=== PATIENT | male | born 1995 | race Caucasian/White ===

== ENCOUNTER 2018-11-01 13:50 | Inpatient (IN) | payer OTHER ==
[~2018-11-01] VITALS: Ht 182.9 cm; Wt 171.0 kg
[2018-11-01] MEDS ORDERED: LOSA50 PO (14:03)
[2018-11-01 14:46] LABS: BASOPHILS ABSOLUTE AUTO 0.03 K/mm3 (0.00-0.23); BASOPHILS PERCENT AUTO 0 % (0-2); EOSINOPHILS ABSOLUTE AUTO 0.12 K/mm3 (0.00-0.68); EOSINOPHILS PERCENT AUTO 2 % (0-6); Hematocrit 51.1 % (37.0-53.0); Hemoglobin 17.7 g/dL (13.5-17.5); IMMATURE GRAN ABSOLUTE AUTO 0.02 K/mm3 (0.00-0.10); IMMATURE GRAN PERCENT AUTO 0 % (0-1); LYMPHOCYTES ABSOLUTE AUTO 1.97 K/mm3 (0.84-5.20); LYMPHOCYTES PERCENT AUTO 24 % (21-46); MONOCYTES ABSOLUTE AUTO 0.89 K/mm3 (0.16-1.47); MONOCYTES PERCENT AUTO 11 % (4-13); Mean Corpuscular HGB 29.4 pg (26.0-34.0); Mean Corpuscular HGB Conc 34.6 g/dL (31.5-36.5); Mean Corpuscular Volume 85 fL (80-100); Mean Platelet Volume 12.1 fL (9.1-12.4); NEUTROPHILS ABSOLUTE AUTO 5.15 K/mm3 (1.96-9.15); NEUTROPHILS PERCENT AUTO 63 % (41-73); Platelet Count 218 K/mm3 (150-400); RDW Coefficient Variation 12.8 % (11.7-14.2); RDW Standard Deviation 39.5 fL (35.1-46.3); Red Blood Cell Count 6.02 M/mm3 (4.30-5.90); White Blood Cell Count 8.18 K/mm3 (4.00-11.30)
[2018-11-01 15:15] LABS: Alanine Aminotransfer (ALT/SGP 82 U/L (12-78); Albumin, Blood 4.2 g/dL (3.4-5.0); Albumin/Globulin Ratio 1.2 (0.8-1.8); Alk Phos 94 U/L (50-136); Anion Gap 7 mmol/L (6-16); Aspartate Aminotrans (AST/SGOT 51 U/L (12-37); Bilirubin, Total 0.5 mg/dL (0.1-1.0); Blood Urea Nitrogen 14 mg/dL (8-24); Bun/Creatinine Ratio 16.7 (12.0-20.0); CO2, Blood 26 mmol/L (21-32); Calcium, Blood 8.4 mg/dL (8.5-10.1); Chloride, Blood 107 mmol/L (98-108); Creatinine, Blood 0.84 mg/dL (0.60-1.20); Globulin, Blood 3.6 g/dL (2.2-4.0); Glomerular Filtration Rate >60 (60-); Glucose, Blood 86 mg/dL (70-99); Potassium, Blood 3.6 mmol/L (3.5-5.5); Sodium, Blood 140 mmol/L (136-145); Total Protein, Blood 7.8 g/dL (6.4-8.2)
[2018-11-01] MEDS ORDERED: Cyclobenzaprine5 MG PO (15:32)
[2018-11-01] MEDS ORDERED: ALBU90OI61 INH (15:32)
[2018-11-01] MEDS ORDERED: Lomotil Tablet1 EACH PO (15:33)
[2018-11-01 17:32] LABS: CHOL/HDL RATIO 5.1; Cholesterol 198 mg/dL (50-200); HDL Cholesterol 39 mg/dL (>39); LDL/HDL RATIO 3.2; Low Density Lipoprotein Chol 124 mg/dL (0-110); Triglycerides 173 mg/dL (30-140); Very Low Density Lipoprot Chol 34 mg/dL (6-28)
--- NOTE | 2018-11-01 19:35 | NUR ---
PT HERE VIA [facility] FROM ER. PT AMBULATORY TO PCU BED. NITRO TO CHEST WALL. PT DENIES ANY CHEST PAIN, SOB, JAW, OR SHOULDER PAIN. PT DENIES NAUSEA, FEELING DIZZY OR LIGHTHEADED. PT DOES REPORT A HEADACHE, ALSO REPORTS A HISTORY OF CHRONIC HEADACHES, HOWEVER REPORTS HE DID NOT HAVE A HEADACHE PRIOR TO NITRO ADMINISTRATION TODAY. ORIENTED TO ROOM, CALL LIGHT, CARE ROUNDING. SO WITH PT, SUPPORTIVE. EDUCATED ON DIET CHANGES, PT IS MORBIDLY OBESE, AND PER REPORT ATE 2 BIG MACKS, A LARGE KINCAID, PIE, AND SODA POP FROM [employer] IN ER, PRIOR TO COMING TO PCU. PT ALSO UNDERSTANDS HE IS NPO AT THIS TIME, FOR AM PROCEDURE. CALL LIGHT WITHIN REACH. SO SPENDING THE NIGHT - RECLINER PROVIDED. BED IN LOW POSITION. ORAL SWABS AT BEDSIDE.
--- NOTE | 2018-11-01 22:22 | NUR ---
NITRO REMOVED FROM CHEST WALL - PT DENIES ANY CHEST PAIN, BUT IS COMPLAINING OF A MIGRAINE HEADACHE. ICE PACK PROVIDED FOR COMFORT, MEDICATED WITH TYLENOL - WILL CONTINUE TO MONITOR.
--- NOTE | 2018-11-02 05:37 | NUR ---
SHIFT SUMMARY - NO ACUTE CHANGES SINCE ADMIT LAST NOC. PT REPORTS HIS HEADACHE PAIN 2/10 THIS AM - WHICH HE REPORTS TOLERABLE. PT HAS DENIED ANY CHEST PAIN OR DISCOMFORT THROUGHOUT THE NIGHT. PT HAS BEEN NPO FOR AM PROCEDURE. CLEAR VILLA COLORED URINE OUT THIS AM. CALL LIGHT WITHIN REACH. BED IN LOW POSITION.
--- NOTE | 2018-11-02 12:28 | NUR ---
Echocardiogram using 0.60ml; of Definity contrast performed.
--- NOTE | 2018-11-02 18:23 | NUR ---
END OF SHIFT; PT NOW MED WITH TELE STATUS. CAME TO SEE HIM TODAY AND DISCUSSED RESULTS OF ECHO AND NEED FOR PATIENT TO HAVE DIET MANAGMENT AND EXERCISE REGIMEN TO BEGIN IMMEDIATELY. PT AND SPOUSE VERBALIZED UNDERSTANDING. PT HAD FIRST PART OF STRESS TEST TODAY AND RESTING PORTION WILL BE TOMORROW SINCE PATIENT HAD NITRO LAST NOC AND NEED FOR 24 HOURS WITHOUT NITRO PRIOR TO TEST. PT HAS PLEASANT AFFECT IS COOPERATIVE WITH CARE. HIS VITAL SIGNS SHOW ELEVATED BLOOD PRESSURE AND MD IS ADJUSTING HIS MEDS TO COMPENSATE FOR SAME. WILL CONTINUE TO MONITOR THIS PAITENT CLOSELY UNTIL REPORT AND HAND OFF TO NOC SHIFT RN.
--- NOTE | 2018-11-03 06:15 | NUR ---
SHIFT SUMMARY. DENIES ANY CHEST PAIN ALL SHIFT. MILD TAFOYA PER HX IT NEVER REDUCES TO <2. AND TYLENOL GIVEN TO ASSIST IN THIS;/ VISITORS ON A LONG WALK IN [place] W/ PT. AND TOLERATED VERY WELL. BP REDUCING W/ MEDS AND CALMING EFFORTS. SR 90'S NPO OF FOOD SINCE MID NOC.AWARE HE CAN HAVE H2O W/ MEDS . SLEEP STUDY ON RA FOR ABOUT 6 HR. SNORING AND SLEEPING VERY WELL. DID NOT NOTICE PERIODS OF APNEA ON ROUNDING. BP WNL THIS AM WHEN JUST WAKING UP;.NO REQ FOR TYLENOL. FOR 2/10 TAFOYA AND NEVER CP TONIGHT. NO SOB W/ ANY ACTIVITY
--- NOTE | 2018-11-03 14:42 | NUR ---
PT NPO PRIOR TO STRESS TEST. STRESS TEST COMPLETE. PT CLEARED BY NUC MED TO EAT.
[2018-11-03] MEDS ORDERED: AMLO5 PO (17:48)
[2018-11-03] MEDS ORDERED: ASPI81CH PO (17:49)
[2018-11-03] MEDS ORDERED: ATOR40TA PO (17:50)
[2018-11-03] MEDS ORDERED: LISI20 PO (17:50)
[2018-11-03] MEDS ORDERED: Lopressor 25 mg25 MG PO (17:51)
[2018-11-03] MEDS ORDERED: NITR.4SL SL (17:52)
--- NOTE | 2018-11-03 18:17 | NUR ---
SHIFT SUMMARY PT A&O X4. INDEPENDENT IN ROOM. FAMILY AT BEDSIDE. MEDICATIONS CALLED TO [facility] IN [place]. DISCHARGE INSTRUCTIONS AND MEDICATIONS REVIEWED W/ PT. IV DC'D. PT ESCORTED OUT IN WHEELCHAIR W/ FAMILY & BELONGINGS @ APPROX 1819.
== END 2018-11-03 18:10 | disposition home or self-care (01) | DRG 305 ==
LOC: ER 13:50 → PCU 13:51 → ER 13:51 → PCU 13:51
PROVIDERS: Physician Assistant; ADMIT Internal Medicine
DX: I16.0 Hypertensive urgency (principal); I24.9 Acute ischemic heart disease, unspecified; Z68.43 Body mass index [BMI] 50.0-59.9, adult; R07.89 Other chest pain; E66.01 Morbid (severe) obesity due to excess calories; E78.5 Hyperlipidemia, unspecified; G47.33 Obstructive sleep apnea (adult) (pediatric); I77.810 Thoracic aortic ectasia; I11.9 Hypertensive heart disease without heart failure
CPT/HCPCS: 36415; 71046; 78452; 80053; 80061; 84443; 84484; 85025; 85379; 93005; 93010; 93017; 94762; 96372; 96374; 99285-25; A9500; C8929; G0378; J0706; J1650; J2785; Q9957

== ENCOUNTER 2022-01-16 06:43 | Day surgery (SDC) | payer OTHER ==
[~2022-01-16] VITALS: Ht 182.9 cm; Wt 384.4 kg
[~2022-01-16 06:43] MED LIST: ALBU90OI61 INH; AMLO5 PO; ASPI81CH PO; ATOR40TA PO; Cyclobenzaprine5 MG PO; LISI20 PO; LOSA50 PO; Lomotil Tablet1 EACH PO; Lopressor 25 mg25 MG PO; NITR.4SL SL
== END 2022-01-16 08:39 | disposition home or self-care (01) ==
LOC: ORSCSDS 06:43
PROVIDERS: Orthopaedic Surgery
PROC: 01N50ZZ Release Median Nerve, Open Approach (ICD-10-PCS; principal; 2022-01-16 08:00)
DX: G56.03 Carpal tunnel syndrome, bilateral upper limbs (principal); I10 Essential (primary) hypertension; J45.909 Unspecified asthma, uncomplicated; G47.33 Obstructive sleep apnea (adult) (pediatric); E66.01 Morbid (severe) obesity due to excess calories; Z68.43 Body mass index [BMI] 50.0-59.9, adult; Z79.899 Other long term (current) drug therapy
CPT/HCPCS: J0690; J2250

== ENCOUNTER 2022-02-20 07:31 | Day surgery (SDC) | payer OTHER ==
[~2022-02-20] VITALS: Ht 182.9 cm; Wt 173.4 kg
[2022-02-20] MEDS ORDERED: METO50ER PO (08:09)
[2022-02-20] MEDS ORDERED: IBUP600 PO (08:12)
--- NOTE | 2022-02-20 09:44 | NUR ---
02/20/22 0944 TK MADRIGAL REPORTED ELEVATED BP TO DR MILLER AND ADVISED THE PATIENT TO FOLLOW UP WITH HIS PCP FOR HTN
== END 2022-02-20 09:58 | disposition home or self-care (01) ==
LOC: ORSCSDS 07:31
PROVIDERS: Orthopaedic Surgery
PROC: 01N50ZZ Release Median Nerve, Open Approach (ICD-10-PCS; principal; 2022-02-20 09:00)
DX: G56.01 Carpal tunnel syndrome, right upper limb (principal); I10 Essential (primary) hypertension; G47.33 Obstructive sleep apnea (adult) (pediatric); E66.01 Morbid (severe) obesity due to excess calories; Z68.43 Body mass index [BMI] 50.0-59.9, adult; Z79.899 Other long term (current) drug therapy
CPT/HCPCS: J0690; J2250; J3010

== ENCOUNTER 2023-10-03 00:21 | Observation (INO) | payer OTHER ==
[~2023-10-03] VITALS: Ht 180.3 cm; Wt 176.5 kg
[~2023-10-03 00:21] MED LIST changes: +IBUP600 PO; +METO50ER PO
[2023-10-03 00:51] LABS: BASOPHILS ABSOLUTE AUTO 0.07 K/mm3 (0.00-0.23); BASOPHILS PERCENT AUTO 0 % (0-2); EOSINOPHILS ABSOLUTE AUTO 0.09 K/mm3 (0.00-0.68); EOSINOPHILS PERCENT AUTO 0 % (0-6); Hematocrit 45.2 % (37.0-53.0); IMMATURE GRAN ABSOLUTE AUTO 0.09 K/mm3 (0.00-0.10); IMMATURE GRAN PERCENT AUTO 0 % (0-1); LYMPHOCYTES ABSOLUTE AUTO 1.54 K/mm3 (0.84-5.20); LYMPHOCYTES PERCENT AUTO 8 % (21-46); MONOCYTES ABSOLUTE AUTO 1.15 K/mm3 (0.16-1.47); MONOCYTES PERCENT AUTO 6 % (4-13); Mean Corpuscular HGB 30.4 pg (26.0-34.0); Mean Corpuscular HGB Conc 35.4 g/dL (31.5-36.5); Mean Corpuscular Volume 86 fL (80-100); Mean Platelet Volume 12.1 fL (9.1-12.4); NEUTROPHILS ABSOLUTE AUTO 17.35 K/mm3 (1.96-9.15); NEUTROPHILS PERCENT AUTO 86 % (41-73); Platelet Count 169 K/mm3 (150-400); RDW Coefficient Variation 13.1 % (11.7-14.2); RDW Standard Deviation 40.3 fL (35.1-46.3); Red Blood Cell Count 5.26 M/mm3 (4.30-5.90); White Blood Cell Count 20.29 K/mm3 (4.00-11.30)
[2023-10-03 01:15] LABS: Albumin/Globulin Ratio 1.1 (0.8-1.8); Bilirubin, Total 0.5 mg/dL (0.1-1.0); Calcium, Blood 9.1 mg/dL (8.5-10.1); Creatinine, Blood 0.68 mg/dL (0.60-1.20); Globulin, Blood 3.5 g/dL (2.2-4.0); Potassium, Blood 3.9 mmol/L (3.5-5.5); Total Protein, Blood 7.5 g/dL (6.4-8.2)
[2023-10-03 02:48] LABS: Anti-Xa UFH, PHA Monitoring <0.10 IU/mL; International Normalized Ratio 1.04; Prothrombin Time Results 10.9 Sec (9.7-11.5)
[2023-10-03 05:27] LABS: BASOPHILS ABSOLUTE AUTO 0.04 K/mm3 (0.00-0.23); BASOPHILS PERCENT AUTO 0 % (0-2); EOSINOPHILS ABSOLUTE AUTO 0.04 K/mm3 (0.00-0.68); EOSINOPHILS PERCENT AUTO 0 % (0-6); Hematocrit 40.7 % (37.0-53.0); Hemoglobin 14.4 g/dL (13.5-17.5); IMMATURE GRAN ABSOLUTE AUTO 0.07 K/mm3 (0.00-0.10); IMMATURE GRAN PERCENT AUTO 0 % (0-1); LYMPHOCYTES ABSOLUTE AUTO 1.35 K/mm3 (0.84-5.20); LYMPHOCYTES PERCENT AUTO 8 % (21-46); MONOCYTES ABSOLUTE AUTO 0.96 K/mm3 (0.16-1.47); MONOCYTES PERCENT AUTO 6 % (4-13); Mean Corpuscular HGB 30.4 pg (26.0-34.0); Mean Corpuscular HGB Conc 35.4 g/dL (31.5-36.5); Mean Corpuscular Volume 86 fL (80-100); Mean Platelet Volume 12.1 fL (9.1-12.4); NEUTROPHILS ABSOLUTE AUTO 14.66 K/mm3 (1.96-9.15); NEUTROPHILS PERCENT AUTO 86 % (41-73); Platelet Count 157 K/mm3 (150-400); RDW Coefficient Variation 12.9 % (11.7-14.2); RDW Standard Deviation 40.2 fL (35.1-46.3); Red Blood Cell Count 4.73 M/mm3 (4.30-5.90); White Blood Cell Count 17.12 K/mm3 (4.00-11.30)
[2023-10-03 05:36] LABS: Albumin, Blood 3.6 g/dL (3.4-5.0); Albumin/Globulin Ratio 1.2 (0.8-1.8); Bilirubin, Total 0.7 mg/dL (0.1-1.0); Bun/Creatinine Ratio 19.1 (12.0-20.0); Calcium, Blood 8.6 mg/dL (8.5-10.1); Creatinine, Blood 0.68 mg/dL (0.60-1.20); Potassium, Blood 4.2 mmol/L (3.5-5.5); Total Protein, Blood 6.6 g/dL (6.4-8.2)
[2023-10-03 05:50] VITALS: BP 117/82
--- NOTE | 2023-10-03 06:29 | NUR ---
ADMIT NOTE HANDOFF RECEIVED FROM [employer] CHIEF ROSA MARIA. PT ARRIVED TO FLOOR VIA [facility]. PT ORIENTED TO UNIT. CALL BUTTON WITHIN REACH.
[2023-10-03 10:19] LABS: BASOPHILS ABSOLUTE AUTO 0.04 K/mm3 (0.00-0.23); BASOPHILS PERCENT AUTO 0 % (0-2); EOSINOPHILS ABSOLUTE AUTO 0.02 K/mm3 (0.00-0.68); EOSINOPHILS PERCENT AUTO 0 % (0-6); Hematocrit 42.4 % (37.0-53.0); Hemoglobin 15.1 g/dL (13.5-17.5); IMMATURE GRAN ABSOLUTE AUTO 0.04 K/mm3 (0.00-0.10); IMMATURE GRAN PERCENT AUTO 0 % (0-1); LYMPHOCYTES ABSOLUTE AUTO 1.42 K/mm3 (0.84-5.20); LYMPHOCYTES PERCENT AUTO 10 % (21-46); MONOCYTES ABSOLUTE AUTO 0.85 K/mm3 (0.16-1.47); MONOCYTES PERCENT AUTO 6 % (4-13); Mean Corpuscular HGB 30.9 pg (26.0-34.0); Mean Corpuscular HGB Conc 35.6 g/dL (31.5-36.5); Mean Corpuscular Volume 87 fL (80-100); Mean Platelet Volume 11.6 fL (9.1-12.4); NEUTROPHILS ABSOLUTE AUTO 11.97 K/mm3 (1.96-9.15); NEUTROPHILS PERCENT AUTO 84 % (41-73); Platelet Count 160 K/mm3 (150-400); RDW Coefficient Variation 13.1 % (11.7-14.2); RDW Standard Deviation 40.5 fL (35.1-46.3); Red Blood Cell Count 4.88 M/mm3 (4.30-5.90); White Blood Cell Count 14.34 K/mm3 (4.00-11.30)
[2023-10-03] MEDS ORDERED: ALBU90OI INH (11:17)
[2023-10-03] MEDS ORDERED: METF500 PO (11:18)
--- NOTE | 2023-10-03 11:52 | NUR ---
DISCHARGE SUMMARY: PT DISCHARGED HOME. PT IN NO RESPIRATORY DISTRESS AT THIS TIME. PT EDUCATED ON DISCHARGE PLAN AND MEDICATIONS. PT VU. PT DECLINED WHEELCHAIR ESCORT. PT STEADY ON FEET AND DISCHARGED WITH ESCORT TO POV.
[2023-10-06 11:22] LABS: HEMOGLOBIN A1C 7.5 % (4.8-5.6)
== END 2023-10-03 11:33 | disposition home or self-care (01) ==
LOC: ER 00:21 → MEDS 00:22
PROVIDERS: Emergency Medicine; Family Medicine; Internal Medicine; ADMIT Student in an Organized Health Care Education/Training Program
DX: J96.01 Acute respiratory failure with hypoxia (principal); J45.901 Unspecified asthma with (acute) exacerbation; R79.89 Other specified abnormal findings of blood chemistry; I10 Essential (primary) hypertension; E66.01 Morbid (severe) obesity due to excess calories; Z68.44 Body mass index [BMI] 60.0-69.9, adult; Z88.5 Allergy status to narcotic agent; Z79.899 Other long term (current) drug therapy
CPT/HCPCS: 36415; 71046; 80053; 82947; 83036; 84484; 85025; 85379; 85520; 85610; 85730; 93005; 93010; 94640; 94664; 96361; 96365; 96375; 99285-25; A9270; G0378; J1200; J1644; J2405; J7030

== ENCOUNTER 2023-10-04 14:49 | Inpatient (IN) | payer OTHER ==
[~2023-10-04] VITALS: Ht 182.9 cm; Wt 169.2 kg
[~2023-10-04 14:49] MED LIST changes: +ALBU90OI INH; +METF500 PO
[2023-10-04 15:23] LABS: BASOPHILS ABSOLUTE AUTO 0.05 K/mm3 (0.00-0.23); BASOPHILS PERCENT AUTO 0 % (0-2); EOSINOPHILS ABSOLUTE AUTO 0.02 K/mm3 (0.00-0.68); EOSINOPHILS PERCENT AUTO 0 % (0-6); Hematocrit 46.4 % (37.0-53.0); Hemoglobin 16.4 g/dL (13.5-17.5); IMMATURE GRAN ABSOLUTE AUTO 0.03 K/mm3 (0.00-0.10); IMMATURE GRAN PERCENT AUTO 0 % (0-1); LYMPHOCYTES ABSOLUTE AUTO 0.52 K/mm3 (0.84-5.20); LYMPHOCYTES PERCENT AUTO 5 % (21-46); MONOCYTES ABSOLUTE AUTO 0.64 K/mm3 (0.16-1.47); MONOCYTES PERCENT AUTO 6 % (4-13); Mean Corpuscular HGB 30.3 pg (26.0-34.0); Mean Corpuscular HGB Conc 35.3 g/dL (31.5-36.5); Mean Corpuscular Volume 86 fL (80-100); Mean Platelet Volume 11.9 fL (9.1-12.4); NEUTROPHILS ABSOLUTE AUTO 10.05 K/mm3 (1.96-9.15); NEUTROPHILS PERCENT AUTO 89 % (41-73); Platelet Count 175 K/mm3 (150-400); RDW Coefficient Variation 13.1 % (11.7-14.2); RDW Standard Deviation 40.4 fL (35.1-46.3); Red Blood Cell Count 5.41 M/mm3 (4.30-5.90); White Blood Cell Count 11.31 K/mm3 (4.00-11.30)
[2023-10-04 15:50] LABS: Bilirubin, Total 1.2 mg/dL (0.1-1.0); Bun/Creatinine Ratio 19.7 (12.0-20.0); Calcium, Blood 9.3 mg/dL (8.5-10.1); Creatinine, Blood 0.71 mg/dL (0.60-1.20); Globulin, Blood 4.1 g/dL (2.2-4.0); Total Protein, Blood 8.1 g/dL (6.4-8.2)
[2023-10-04 17:29] LABS: Influenza A, PCR NEGATIVE (NEGATIVE); Influenza B, PCR NEGATIVE (NEGATIVE); Resp Syncytial Virus, PCR NEGATIVE (NEGATIVE); SARS-Cov-2 (COVID-19) PCR, MMC NEGATIVE (NEGATIVE)
[2023-10-04 23:48] VITALS: BP 141/86
[2023-10-05 03:17] VITALS: BP 126/75
[2023-10-05 05:19] LABS: BASOPHILS ABSOLUTE AUTO 0.03 K/mm3 (0.00-0.23); BASOPHILS PERCENT AUTO 0 % (0-2); EOSINOPHILS ABSOLUTE AUTO 0.03 K/mm3 (0.00-0.68); EOSINOPHILS PERCENT AUTO 0 % (0-6); Hematocrit 40.9 % (37.0-53.0); Hemoglobin 14.5 g/dL (13.5-17.5); IMMATURE GRAN ABSOLUTE AUTO 0.03 K/mm3 (0.00-0.10); IMMATURE GRAN PERCENT AUTO 0 % (0-1); LYMPHOCYTES ABSOLUTE AUTO 0.87 K/mm3 (0.84-5.20); LYMPHOCYTES PERCENT AUTO 12 % (21-46); MONOCYTES ABSOLUTE AUTO 0.71 K/mm3 (0.16-1.47); MONOCYTES PERCENT AUTO 10 % (4-13); Mean Corpuscular HGB 30.7 pg (26.0-34.0); Mean Corpuscular HGB Conc 35.5 g/dL (31.5-36.5); Mean Corpuscular Volume 87 fL (80-100); Mean Platelet Volume 11.6 fL (9.1-12.4); NEUTROPHILS ABSOLUTE AUTO 5.57 K/mm3 (1.96-9.15); NEUTROPHILS PERCENT AUTO 77 % (41-73); Platelet Count 159 K/mm3 (150-400); RDW Coefficient Variation 13.1 % (11.7-14.2); RDW Standard Deviation 40.9 fL (35.1-46.3); Red Blood Cell Count 4.72 M/mm3 (4.30-5.90); White Blood Cell Count 7.24 K/mm3 (4.00-11.30)
--- NOTE | 2023-10-05 05:25 | NUR ---
SHIFT SUMMARY PATIENT IS ALERT AND ORIENTED. PATIENT HAS HAD NO ACUTE EVENTS THIS SHIFT. PATIENT IS A RECENT ADMIT TONIGHT FOR SEPSIS. PATIENT HAS FLUIDS INFUSING ORDERED. PATIENT HAS HAD NO COMPLAINTS OF PAIN, NAUSEA, SOB OR VOMITTING THIS SHIFT. VITAL SIGNS REVIEWED. BED IN LOCKED AND LOWEST POSITION. CALL LIGHT IN PLACE. WILL MONITOR UNTIL SHIFT CHANGE.
[2023-10-05 06:09] LABS: Albumin, Blood 3.4 g/dL (3.4-5.0); Bilirubin, Total 1.2 mg/dL (0.1-1.0); Bun/Creatinine Ratio 21.2 (12.0-20.0); Calcium, Blood 8.3 mg/dL (8.5-10.1); Creatinine, Blood 0.8 mg/dL (0.60-1.20); Globulin, Blood 3.5 g/dL (2.2-4.0); Potassium, Blood 3.6 mmol/L (3.5-5.5); Total Protein, Blood 6.9 g/dL (6.4-8.2)
[2023-10-05 07:14] VITALS: BP 130/79
[2023-10-05 15:04] VITALS: BP 144/99
--- NOTE | 2023-10-05 18:15 | NUR ---
SUMMARY- PT A/O X4, INDEPENDANT IN THE ROOM. PT STARTED ON SOLUMEDROL. LUNGS CLEAR WITH OCC WHEEZE. STARTED ON ROUTINE ON DUO NEBS. PT DENIES ANY SOB TODAY, FEELS THIS HAS BEEN RESOLVED. BUT IS HAVING LOOSE STOOLS. HAD 3 THIS AM. SENT STOOL FOR BACTERIA AND LATER ADDED C-DIFF, STILL AWAITING RESULTS. PT STATES STOOL HAS HARDENED. PT TOLERATING FOOD AND FLUIDS. WILL REPORT TO MICHAEL CEBALLOS.
[2023-10-05 19:05] LABS: C DIFFICILE DNA NEGATIVE (Negative)
[2023-10-05 19:27] VITALS: BP 155/89
[2023-10-06 04:34] VITALS: BP 137/86
[2023-10-06 04:53] LABS: BASOPHILS PERCENT AUTO 0 % (0-2); EOSINOPHILS PERCENT AUTO 0 % (0-6); Hematocrit 44.3 % (37.0-53.0); Hemoglobin 15.1 g/dL (13.5-17.5); IMMATURE GRAN ABSOLUTE AUTO 0.04 K/mm3 (0.00-0.10); IMMATURE GRAN PERCENT AUTO 0 % (0-1); LYMPHOCYTES ABSOLUTE AUTO 0.62 K/mm3 (0.84-5.20); LYMPHOCYTES PERCENT AUTO 7 % (21-46); MONOCYTES ABSOLUTE AUTO 0.27 K/mm3 (0.16-1.47); MONOCYTES PERCENT AUTO 3 % (4-13); Mean Corpuscular HGB Conc 34.1 g/dL (31.5-36.5); Mean Corpuscular Volume 88 fL (80-100); Mean Platelet Volume 11.4 fL (9.1-12.4); NEUTROPHILS ABSOLUTE AUTO 7.98 K/mm3 (1.96-9.15); NEUTROPHILS PERCENT AUTO 90 % (41-73); Platelet Count 196 K/mm3 (150-400); RDW Coefficient Variation 12.9 % (11.7-14.2); RDW Standard Deviation 41.5 fL (35.1-46.3); Red Blood Cell Count 5.04 M/mm3 (4.30-5.90); White Blood Cell Count 8.91 K/mm3 (4.00-11.30)
[2023-10-06 05:18] LABS: Albumin, Blood 3.6 g/dL (3.4-5.0); Albumin/Globulin Ratio 0.9 (0.8-1.8); Bilirubin, Total 0.6 mg/dL (0.1-1.0); Bun/Creatinine Ratio 24.4 (12.0-20.0); Calcium, Blood 8.6 mg/dL (8.5-10.1); Creatinine, Blood 0.66 mg/dL (0.60-1.20); Globulin, Blood 4.1 g/dL (2.2-4.0); Potassium, Blood 4.1 mmol/L (3.5-5.5); Total Protein, Blood 7.7 g/dL (6.4-8.2)
--- NOTE | 2023-10-06 06:34 | NUR ---
SHIFT SUMMARY NOC PT A/O X 4. PLEASANT AND COOPERATIVE WITH CARE. NO ACUTE EVENTS TO REPORT. PT HAD NO C/O OF SOB OR PAIN. PT RECEIVING Q8H SOLU MEDROL. PT STOOL SAMPLE CAME BACK NEGATIVE FOR C DIFF. PT HAS NOT ANY BM DURING SHIFT SO FAR. PT SPOUSE STAYED NIGHT WITH PT IN ROOM. PT ON CONTINOUS BIOX AT NIGHT WHILE SLEEPING TO MONITOR SPO2, DUE TO POSSIBLE UNDIAGNOSED ARMANI. PT IS CURRENTLY RESTING WITH BED IN LOWEST POSITION, AND CALL LIGHT WITHIN REACH.
[2023-10-06 07:54] VITALS: BP 160/85
[2023-10-06 11:30] LABS: Adenovirus F 40/41 Not Detected (NOT DETECT); Astrovirus Not Detected (NOT DETECT); Campylobacter Sp Not Detected (NOT DETECT); Cryptosporidium Not Detected (NOT DETECT); Cyclospora Cayetanensis Not Detected (NOT DETECT); E. Coli O157 Not Detected (NOT DETECT); Entamoeba Histolytica Not Detected (NOT DETECT); Enteroaggregative E. coli-EAEC Not Detected (NOT DETECT); Enteropathogenic E. coli-EPEC Not Detected (NOT DETECT); Enterotoxigenic E. coli-ETEC Not Detected (NOT DETECT); Giardia Lamblia Not Detected (NOT DETECT); Norovirus GI/GII Not Detected (NOT DETECT); Plesiomonas Shigelloides Not Detected (NOT DETECT); Rotavirus A Not Detected (NOT DETECT); Salmonella Sp Not Detected (NOT DETECT); Sapovirus Not Detected (NOT DETECT); Shiga Toxin-prod E. coli-STEC Not Detected (NOT DETECT); Shigella/Enteroin E. coli-EIEC Not Detected (NOT DETECT); Vibrio Cholerae Not Detected (NOT DETECT); Vibrio Sp Not Detected (NOT DETECT); Yersinia Enterocolitica Not Detected (NOT DETECT)
[2023-10-06 14:43] VITALS: BP 141/82
--- NOTE | 2023-10-06 19:31 | NUR ---
SUMMARY- PT IS A/O X4, INDEPENDANT IN ROOM. LUNGS CLEAR, STATES SOB HE CAME IN WITH IS RESOLVED. STATES HE DID NOT LIKE THE DUONEB THAT IT MADE HIM ANXIOUS AND HIS HEART RACE, DOESN'T THINK HE NEEDS IT. INSTRUCTED TO DECLINE IF HE WANTS. PT HAD LOOSE STOOL X3 THIS AM, GIVEN IMMODIUM AFTER GI PANAL NEGATIVE RESLUTS FOR BACTERIA. STOOL IS FORMING UP. TYLENOL HELPFUL THIS AM FOR HEADACHE. TOLERATING FOOD AND FLUID. PLAN FOR DC TOMORROW.
[2023-10-06 19:33] VITALS: BP 124/78
--- NOTE | 2023-10-07 05:59 | NUR ---
SHIFT SUMMARY NOC A/O X 4. PLEASANT AND COOPERATIVE WITH CARE. NO ACUTE CHANGES TO REPORT. NO SOB REPORTED. PT HAD NO BM DURING SHIFT AND DID NOT WANT PRN IMMODIUM. PT IS POSSIBLE DISHCHARGE HOME TODAY. PT IS CURRENTLY RESTING WITH BED IN LOWEST POSITION, AND CALL LIGHT WITHIN REACH.
[2023-10-07 07:50] VITALS: BP 124/75
--- NOTE | 2023-10-07 09:00 | NUR ---
pt laying in bed watching tv, a/ox4, pleasant and cooperative with care, follows commands well, denies pain, states he's feeling better, no diff breathing, lungs are clear t/o, resp even and unlabored, no cough noted, hrr, no edema noted, ppp+2, cap refill <3sec, vs stable, afebrile, piv site is clear and patent, to rfa, btx4, abd flat soft nontender, voids without diff, skin c/w/d, josse shannon, call light in reach.
[2023-10-07] MEDS ORDERED: AMOCLA875 PO (15:42)
[2023-10-07] MEDS ORDERED: LOPE2C PO (15:43)
--- NOTE | 2023-10-07 15:58 | NUR ---
Pt has been discharged to home, faxed new medication to [facility], iv removed intact, went over instructions with him, he verbalized understanding. left via ambulation with his spouce with all his belongings.
[2023-10-09 20:11] LABS: HEMOGLOBIN A1C 7.5 % (4.8-5.6)
== END 2023-10-07 15:58 | disposition home or self-care (01) | DRG 871 ==
LOC: ER 14:49 → MEDS 14:50
PROVIDERS: Emergency Medicine; Family Medicine; Internal Medicine; Student in an Organized Health Care Education/Training Program; ADMIT Internal Medicine
DX: A41.9 Sepsis, unspecified organism (principal); J18.9 Pneumonia, unspecified organism; I24.89 Other forms of acute ischemic heart disease; J45.901 Unspecified asthma with (acute) exacerbation; Z68.43 Body mass index [BMI] 50.0-59.9, adult; R19.7 Diarrhea, unspecified; E66.01 Morbid (severe) obesity due to excess calories; I11.9 Hypertensive heart disease without heart failure; I77.810 Thoracic aortic ectasia; R73.9 Hyperglycemia, unspecified; T38.0X5A Adverse effect of glucocorticoids and synthetic analogues, initial encounter; Z11.52 Encounter for screening for COVID-19; Z88.5 Allergy status to narcotic agent
CPT/HCPCS: 0241U; 36415; 71046; 71275; 80053; 83605; 83880; 84145; 84484; 85025; 85379; 87015; 87045; 87046; 87205; 87493; 87507; 87899; 93005; 93010; 94640; 94664; 94760; 94762; 96365-59; 96372; 96375; 96376; 99285-25; A9270; G0378; J0696; J1650; J2405; J2920; J7030; J7050; J7120; Q9967